=== PATIENT | female | born 1970 | race Caucasian/White ===

== ENCOUNTER → 2017-10-03 | Outpatient (CLI) | payer OTHER | LOC: RAD 03:54 | DX: Z12.31 Encounter for screening mammogram for malignant neoplasm of breast (principal) ==

== ENCOUNTER → 2018-06-16 | Outpatient (CLI) | payer OTHER | LOC: RAD 12:47 | DX: R07.9 Chest pain, unspecified (principal); R05 Cough; R06.02 Shortness of breath; F17.200 Nicotine dependence, unspecified, uncomplicated ==

== ENCOUNTER → 2019-10-29 | Outpatient (CLI) | payer OTHER ==
--- NOTE | 2019-10-29 16:57 | EKG ---
[facility] [place] [address] ELECTROCARDIOGRAM REPORT Name: NANCY HAYWARD [id number] Admission: 10/29/19 Attend Phys: Leia Sung DO Discharge: Date of : 74 Report #: [id number] THIS REPORT FOR: cc: Leia Sung,Leia Fulton,Chaitanya Mcmullen MD [facility] THIS REPORT FOR: //name// [facility] Test Date: 2019-10-29 Test Time: 14:43:58 Pat Name: NANCY HAYWARD Department: Room: Gender: Evening Sitter: Maco VIERA : 1970 Requested By: Leia Sung Order Number: [id number] MD: Chaitanya Macdonald Measurements Intervals [place] Rate: 81 P: 56 [place]: 152 QRS: 44 QRSD: 78 T: 39 QT: 365 QTc: 424 Interpretive Statements Sinus rhythm Normal tracing No previous ECG available for comparison Electronically Signed On 10-29-2019 16:56:52 CDT by Chaitanya Macdonald [email or web address] <ELECTRONICALLY SIGNED> By: Chaitanya Macdonald MD, [facility] 10/29/19 1656 1443 1443 Chaitanya Macdonald MD, [facility] /EPI
== END ==
LOC: CV 14:24
PROVIDERS: ATTEND Family Medicine
DX: R07.9 Chest pain, unspecified (principal)

== ENCOUNTER 2020-06-04 10:56 | Emergency (ER) | payer OTHER ==
[~2020-06-04] VITALS: Ht 182.9 cm; Wt 65.8 kg
[2020-06-04 11:00] VITALS: BP 124/80
[2020-06-04] MEDS ORDERED: CYCLOBENZAPRINE10 MG PO (11:15)
[2020-06-04] MEDS ORDERED: ZINC SULFATE220 MG PO (11:15)
[2020-06-04] MEDS ORDERED: DULOXETINE HCL30 MG PO (11:15)
[2020-06-04] MEDS ORDERED: MAGNESIUM250 M1 PO (11:16)
[2020-06-04] MEDS ORDERED: PROBIOTIC1 EAC7 PO (11:16)
[2020-06-04] MEDS ORDERED: CALCIUM500 MG PO (11:16)
[2020-06-04] MEDS ORDERED: VITAMIN D350 MC4 PO (11:17)
[2020-06-04 11:34] LABS: HEMATOCRIT 41.9 % (37.0-47.0); HEMOGLOBIN 13.9 gm/dL (12.0-15.0); MCH 30.3 pg (26.0-34.0); MCHC 33.2 g/dL (28.0-37.0); MCV 91.5 fL (80.0-100.0); RBC 4.58 mil/uL (4.20-5.00); RDW 12.6 % (10.5-14.5); WBC 6.1 thou/uL (4.0-11.0)
[2020-06-04 11:48] LABS: ANION GAP 8 mmol/L (7-16); BUN 14 mg/dL (7-18); CALCIUM 9.3 mg/dL (8.5-10.1); CHLORIDE 105 mmol/L (98-107); CO2 27 mmol/L (21-32); CREATININE 0.8 mg/dL (0.6-1.0); GLUCOSE 110 mg/dL (74-106); POTASSIUM 3.6 mmol/L (3.5-5.1); SODIUM 140 mmol/L (136-145)
[2020-06-04 11:55] LABS: ALBUMIN 4.2 g/dL (3.4-5.0); SGOT 15 U/L (15-37); SGPT 23 U/L (30-65); TOTAL BILIRUBIN 0.2 mg/dL (0.2-1.0); TOTAL PROTEIN 7.8 g/dL (6.4-8.2); TROPONIN-I <0.06 ng/mL (<0.06)
--- NOTE | 2020-06-04 14:20 | EKG ---
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: DEVONTE : 1970 Requested By: Anita Duque Order Number: [id number] MD: Chaitanya Macdonald Measurements Intervals [place] Rate: 86 P: 51 [place]: 142 QRS: 28 QRSD: 70 T: 58 QT: 333 QTc: 399 Interpretive Statements Sinus rhythm Probable anteroseptal infarct, old Compared to ECG 10/29/2019 14:43:58 Septal Q waves are now present Electronically Signed On 06-04-2020 14:20:19 SCENE PAINTER by Chaitanya Macdonald [email or web address] <ELECTRONICALLY SIGNED> By: Chaitanya Macdonald MD, [facility] 06/04/20 1420 1103 1103 Chaitanya Macdonald MD, FACC /EPI
[2020-06-04] MEDS ORDERED: PROTONIX40 M2 PO (15:48)
[2020-06-04 16:09] VITALS: BP 125/62
--- NOTE | 2020-06-05 11:18 | HC ---
[facility] [place] [address] CONSULTATION Name: NANCY HAYWARD Room #: DEP Adwoa#: [id number] Admission: 06/04/20 Attend Phys: Discharge: 06/04/20 Date of : 74 Report #: [id number] THIS REPORT FOR: cc: Leia Sung Christine L. DO Mancuso, Gerald M. MD [facility] ~ DATE OF SERVICE: 06/04/2020 CARDIOLOGY CONSULTATION HISTORY OF PRESENT ILLNESS: The patient is a 49-year-old white female, patient of Dr. Geri Melchor. She does not have any documented coronary artery disease, but had a 3-day history of intermittent left-sided chest discomfort, which we will radiate up into her left collarbone, she states. There does not seem to be a pattern and no definite exertional component to this. She is perimenopausal and was considering some hot flashes associated with this, so it was difficult to know. She had a negative stress test 4 or 5 years ago with over at Dr. [place]'s building and probably that would have been in Cardiology. Her only risk factor for coronary artery disease is a half a day pack smoker since she was 22. No change in exercise tolerance. She works parttime. No PND, orthopnea, or peripheral edema. There has been no accelerating component to this. Nitro did help relieve the pain, but that would not be diagnostic coronary. EKG shows nonspecific changes. No evidence of any ischemic changes. She does not take any cardiac medications. She does not have a history of elevated cholesterol. LABORATORY DATA: Sodium 140, potassium 3.6, creatinine 0.8, glucose 110. Troponin is negative, less than 0.06. Normal liver function test. H and H are 13 and 31. White count 6.1. PAST MEDICAL HISTORY: Positive for hiatal hernia, fibromyalgia recently diagnosed a few years ago, history of chest pain with negative stress test 4 years ago, and perimenopausal. SOCIAL HISTORY: She is with grown kids. 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 Social alcohol use and a half a pack a day smoker. FAMILY HISTORY: Negative with regard to her parents or siblings for any coronary artery disease. Her grandparents did have coronary artery disease. REVIEW OF SYSTEMS: Essentially negative except for stated above. PHYSICAL EXAMINATION: GENERAL: Pleasant, alert. [facility] [address] [place] [address] CONSULTATION Name: NANCY HAYWARD Room #: DEP [facility] [id number] Admission: 06/04/20 Attend Phys: Discharge: 06/04/20 Date of : 74 Report #: [id number] VITAL SIGNS: Blood pressure 134/60, pulse 60s. HEENT: Eyes reveal xanthelasmas. Pharynx is clear. NECK: Shows preserved upstrokes without JVD or bruits. LUNGS: Clear. CARDIOVASCULAR: Regular rate and rhythm, S1, S2, without murmur or gallop. ABDOMEN: Soft. No HSM or abdominal bruit. Negative Rosario's sign. EXTREMITIES: Reveal no edema. Pulses intact. NEUROLOGIC: Nonfocal. SKIN: Warm and dry without xanthoma or ulcer. MUSCULOSKELETAL: No gross joint deformity. ASSESSMENT: 1. Chest pain with negative troponin and minimal risk factors for cardiac etiology. 2. Fibromyalgia. 3. Hiatal hernia, suspect underlying reflux. RECOMMENDATIONS AND PLAN: I am going to discuss bland diet. We will add Protonix 40 mg a day. I will also add Bystolic 5 mg for cardioprotection. She is in between insurance and will be insured within a couple of weeks. We could do this ____ out patiently and/or she is currently scheduled to follow up in 2-3 weeks, but will call with any recurrent pain. I will also addition of the Bystolic samples 5 mg a day to go with Protonix and a baby aspirin. Clare diet. She currently follows with Dr. Leia Sung. We will discuss with Dr. Sung tomorrow. She is to return to the Emergency Room if she has any recurrent chest pain, not relieved by GI cocktail. Thank you for asking me to assist in the care of this patient. <ELECTRONICALLY SIGNED> By: Robert Garcia MD, FACC 06/05/20 1118 1549 [id number] Robert Garcia MD, FACC /nt
== END 2020-06-04 16:45 | disposition home or self-care (01) ==
LOC: ER 10:56 → EROBS 14:35 → ER 14:35
PROVIDERS: Nurse Practitioner Family
DX: R07.89 Other chest pain (principal); J45.909 Unspecified asthma, uncomplicated; Z79.899 Other long term (current) drug therapy; Z88.0 Allergy status to penicillin

== ENCOUNTER → 2020-07-06 | Outpatient (CLI) | payer OTHER ==
[~2020-07-06] MED LIST: CALCIUM500 MG PO; CYCLOBENZAPRINE10 MG PO; DULOXETINE HCL30 MG PO; MAGNESIUM250 M1 PO; PROBIOTIC1 EAC7 PO; PROTONIX40 M2 PO; VITAMIN D350 MC4 PO; ZINC SULFATE220 MG PO
== END ==
LOC: RAD 13:47
PROVIDERS: ATTEND Family Medicine
DX: Z12.31 Encounter for screening mammogram for malignant neoplasm of breast (principal); N64.89 Other specified disorders of breast

== ENCOUNTER → 2020-07-12 | Outpatient (CLI) | payer OTHER | LOC: ULTRA 13:10 | PROVIDERS: ATTEND Family Medicine | DX: N60.01 Solitary cyst of right breast (principal); N60.02 Solitary cyst of left breast; N63.0 Unspecified lump in unspecified breast; N63.20 Unspecified lump in the left breast, unspecified quadrant; N63.10 Unspecified lump in the right breast, unspecified quadrant ==

== ENCOUNTER → 2021-02-21 | Outpatient (CLI) | payer OTHER | LOC: CAT 09:39 | PROVIDERS: ATTEND Family Medicine | DX: Z13.6 Encounter for screening for cardiovascular disorders (principal); I25.10 Atherosclerotic heart disease of native coronary artery without angina pectoris; E78.00 Pure hypercholesterolemia, unspecified ==

== ENCOUNTER → 2021-02-21 | Outpatient (CLI) | payer OTHER | LOC: RAD 10:33 | PROVIDERS: ATTEND Family Medicine | DX: N60.02 Solitary cyst of left breast (principal); N60.01 Solitary cyst of right breast; R92.2 Inconclusive mammogram ==